=== PATIENT | male | born 1965 | race Caucasian/White ===

== ENCOUNTER 2024-11-22 15:58 | Inpatient (IN) | payer SELFPAY ==
[~2024-11-22] VITALS: Ht 180.3 cm; Wt 63.0 kg
[~2024-11-22 15:58] MED LIST: AMOCLA875 PO; CLIN300 PO; Dilaudid 2 mg Ta2 MG PO; IBUP400 PO
[2024-11-22 16:24] LABS: BASOPHILS ABSOLUTE AUTO 0.04 K/mm3 (0.00-0.23); BASOPHILS PERCENT AUTO 0 % (0-2); EOSINOPHILS ABSOLUTE AUTO 0.07 K/mm3 (0.00-0.68); EOSINOPHILS PERCENT AUTO 1 % (0-6); Hemoglobin 18.9 g/dL (13.5-17.5); IMMATURE GRAN ABSOLUTE AUTO 0.02 K/mm3 (0.00-0.10); IMMATURE GRAN PERCENT AUTO 0 % (0-1); LYMPHOCYTES ABSOLUTE AUTO 2.12 K/mm3 (0.84-5.20); LYMPHOCYTES PERCENT AUTO 21 % (21-46); MONOCYTES ABSOLUTE AUTO 0.82 K/mm3 (0.16-1.47); MONOCYTES PERCENT AUTO 8 % (4-13); Mean Corpuscular HGB Conc 32.8 g/dL (31.5-36.5); Mean Corpuscular Volume 94 fL (80-100); Mean Platelet Volume 9.9 fL (9.1-12.4); NEUTROPHILS ABSOLUTE AUTO 6.88 K/mm3 (1.96-9.15); NEUTROPHILS PERCENT AUTO 69 % (41-73); Platelet Count 281 K/mm3 (150-400); RDW Coefficient Variation 13.8 % (11.7-14.2); RDW Standard Deviation 48.8 fL (35.1-46.3); White Blood Cell Count 9.95 K/mm3 (4.00-11.30)
[2024-11-22 16:25] LABS: Hematocrit 57.6 % (37.0-53.0)
[2024-11-22 16:41] LABS: Albumin, Blood 2.8 g/dL (3.4-5.0); Albumin/Globulin Ratio 0.7 (0.8-1.8); Bilirubin, Total 0.8 mg/dL (0.1-1.0); Bun/Creatinine Ratio 16.2 (12.0-20.0); Calcium, Blood 8.8 mg/dL (8.5-10.1); Creatinine, Blood 0.93 mg/dL (0.60-1.20); Globulin, Blood 4.2 g/dL (2.2-4.0); Potassium, Blood 4.3 mmol/L (3.5-5.5)
[2024-11-22] MEDS ORDERED: Ipratropium/Albuterol SulF 2.5-0.5MG/3 ML Amp INH ONE (17:00)
[2024-11-22 17:33] LABS: CORONAVIRUS COVID-19 AG Negative (NEGATIVE); INFLUENZA A AG Negative (NEGATIVE); INFLUENZA B AG Negative (NEGATIVE)
[2024-11-22] MEDS ORDERED: MethylPREDNISolone Sod Succ 125 MG Vial IV ONE (19:50)
[2024-11-22] MEDS ORDERED: TraZODone HCl 50 MG Tab PO PRN (20:20)
[2024-11-22] MEDS ORDERED: Magnesium Hydroxide Conc 10 ML UDC PO PRN (20:20)
[2024-11-22] MEDS ORDERED: Ipratropium/Albuterol SulF 2.5-0.5MG/3 ML Amp INH SCH (20:20)
[2024-11-22] MEDS ORDERED: FLU VACC TS2024-25(6MOS UP)/PF 45 MCG/0.5 ML SYRINGE IM ONE (20:25)
[2024-11-22] MEDS ORDERED: CefTRIAXone Sodium 1,000 MG in NS 100 ML IV SCH (21:00)
[2024-11-22] MEDS ORDERED: Lactobacil 2-S.Thermo-Bifido 1 1 Cap PO SCH (21:00)
[2024-11-22] MEDS ORDERED: ALBU90OI INH (21:11)
[2024-11-22 21:32] VITALS: BP 150/88
[2024-11-22] MEDS ORDERED: NS 250 ML IV PRN (21:45)
--- NOTE | 2024-11-22 22:28 | NUR ---
PATIENT IS A NEW ADMIT FROM THE ED. ALERT, ORIENTED, AND SELF TRANSFER FROM [facility] TO BED. ON 3L O2 NC FROM ED AND RA BASELINE. REPORTS SOB W/EXERTION. DENIES CHEST PAIN AND N/V. IV ABX STARTED. RT IN FOR BREATHING TX. ORIENTED TO ROOM AND CALL LIGHT SYSTEM. REPORTS WANTS TO WATCH TV AFTER ASSESSMENT. WCTM.
[2024-11-22] MEDS ORDERED: Albuterol 2.5 MG/3 ML VIAL INH PRN (22:35)
[2024-11-23] MEDS ORDERED: MethylPREDNISolone Sod Succ 40 MG VIAL IV SCH (04:00)
--- NOTE | 2024-11-23 04:20 | NUR ---
SHIFT SUMMARY PATIENT HAD NO ACUTE CHANGES. AXOX 4 AND INDEPENDENT IN ROOM. ON 3L O2 NC AND RA BASELINE. SOB W/EXERTION. RT IN FOR BREATHING TX. DENIES CHEST PAIN AND N/V. VSS/AFEBRILE. CALL LIGHT IN REACH. BED IN LOWEST POSITION. WILL CONTINUE TO MONITOR UNTIL DAY SHIFT NURSE ASSUMES CARE.
[2024-11-23 05:42] VITALS: BP 126/90
[2024-11-23 07:40] VITALS: BP 128/98
[2024-11-23] MEDS ORDERED: Enoxaparin 40 MG/0.4 ML SYR SC SCH (09:00)
--- NOTE | 2024-11-23 12:16 | NUR ---
BIOX 82-83% ON 4 LITERS OXYGEN. PT INSTRUCTED ON USE OF IS. BIOX 87-88% AFTER USING IS. PT ENCOURAGED TO USE IS HOURLY FOR 8-10 REPS. PT DEMONSTRATES CORRECT USE OF IS
[2024-11-23] MEDS ORDERED: Fluticasone 0.05% Nasal Spray SCH (14:05)
--- NOTE | 2024-11-23 16:14 | NUR ---
SHIFT SUMMARY PT AOX4, COOPERATIVE, ABLE TO MAKE NEEDS KNOWN. PT IS IND IN ROOM ON 3LO2 CURRENTLY. PT SEEMS TO BE HANG AROUND 90% SATURATION REGARDLESS OF O2 DEMANDS. PT COMPLAINT OF NASAL CONGESTION, MD ORDERED FLONASE FOR RELIEF. NO COMPLAINTS OF PAIN. TOLERATING PO AND IV ANTIBIOTICS APPROPRIATELY. PT IS CONTINENT AND USING RESTROOM APPROPRIATELY. BED IN LOWEST POSITION, CALL LIGHT WITHIN REACH.
[2024-11-23 16:49] VITALS: BP 120/78
[2024-11-23 20:43] VITALS: BP 124/83
--- NOTE | 2024-11-24 04:15 | NUR ---
SHIFT SUMMARY PATIENT DESTATS INTO 70'S WHEN UP TO TAKE A SHOWER. ON 3L O2 NC STATING 88-90% ON CONTINUOUS PULSE OXIMETRY. UP TO 5L O2 WHEN UP. SOB W/EXERTION. ALERT ORIENTED AND INDEPENDENT. DENIES CHEST PAIN, SOB, AND N/V. VSS/AFEBRILE. PIV INTACT. IV ABX INFUSED. RT IN FOR BREATHING TX. CALL LIGHT IN REACH. BED IN LOWEST POSITION. WILL CONTINUE TO MONITOR UNTIL DAY SHIFT NURSE ASSUMES CARE.
[2024-11-24 05:15] VITALS: BP 126/87
[2024-11-24 05:47] LABS: BASOPHILS ABSOLUTE AUTO 0.04 K/mm3 (0.00-0.23); BASOPHILS PERCENT AUTO 0 % (0-2); EOSINOPHILS PERCENT AUTO 0 % (0-6); Hematocrit 51.6 % (37.0-53.0); Hemoglobin 17.5 g/dL (13.5-17.5); IMMATURE GRAN ABSOLUTE AUTO 0.34 K/mm3 (0.00-0.10); IMMATURE GRAN PERCENT AUTO 1 % (0-1); LYMPHOCYTES ABSOLUTE AUTO 0.82 K/mm3 (0.84-5.20); LYMPHOCYTES PERCENT AUTO 3 % (21-46); MONOCYTES ABSOLUTE AUTO 0.54 K/mm3 (0.16-1.47); MONOCYTES PERCENT AUTO 2 % (4-13); Mean Corpuscular HGB 31.5 pg (26.0-34.0); Mean Corpuscular HGB Conc 33.9 g/dL (31.5-36.5); Mean Corpuscular Volume 93 fL (80-100); Mean Platelet Volume 10.3 fL (9.1-12.4); NEUTROPHILS PERCENT AUTO 94 % (41-73); Platelet Count 284 K/mm3 (150-400); RDW Coefficient Variation 13.5 % (11.7-14.2); RDW Standard Deviation 46.7 fL (35.1-46.3); Red Blood Cell Count 5.55 M/mm3 (4.30-5.90); White Blood Cell Count 27.84 K/mm3 (4.00-11.30)
[2024-11-24 06:29] LABS: Bun/Creatinine Ratio 22.4 (12.0-20.0); Calcium, Blood 9.1 mg/dL (8.5-10.1); Creatinine, Blood 0.85 mg/dL (0.60-1.20); Potassium, Blood 4.6 mmol/L (3.5-5.5)
[2024-11-24] MEDS ORDERED: Ipratropium/Albuterol SulF 2.5-0.5MG/3 ML Amp INH SCH (07:55)
[2024-11-24 08:30] VITALS: BP 118/74
[2024-11-24] MEDS ORDERED: Fluticasone 0.05% Nasal Spray SCH (09:00)
[2024-11-24 15:01] VITALS: BP 113/83
[2024-11-24] MEDS ORDERED: MethylPREDNISolone Sod Succ 40 MG VIAL IV SCH (16:00)
--- NOTE | 2024-11-24 19:12 | NUR ---
PATIENT IS ALERT AND ORIENTED AND COOPERATIVE WITH CARE. ON 5L O2 VIA NC, AT 92%. CONT. PULSE OX IN PLACE. PATIENT REPORTS FEELING BETTER TODAY. PLAN IS TO TAPER STEROIDS ACCORDING TO DR. MONROY. UP TO THE BATHROOM INDEPENDENTLY. NO NEW CONCERNS THIS SHIFT. WILL CONTINUE TO MONITOR
[2024-11-24 21:35] VITALS: BP 107/83
[2024-11-25 05:35] VITALS: BP 126/88
[2024-11-25 06:20] LABS: BASOPHILS ABSOLUTE AUTO 0.03 K/mm3 (0.00-0.23); BASOPHILS PERCENT AUTO 0 % (0-2); EOSINOPHILS PERCENT AUTO 0 % (0-6); Hematocrit 52.5 % (37.0-53.0); Hemoglobin 17.6 g/dL (13.5-17.5); IMMATURE GRAN PERCENT AUTO 2 % (0-1); LYMPHOCYTES ABSOLUTE AUTO 0.78 K/mm3 (0.84-5.20); LYMPHOCYTES PERCENT AUTO 3 % (21-46); MONOCYTES PERCENT AUTO 2 % (4-13); Mean Corpuscular HGB 31.3 pg (26.0-34.0); Mean Corpuscular HGB Conc 33.5 g/dL (31.5-36.5); Mean Corpuscular Volume 93 fL (80-100); Mean Platelet Volume 10.2 fL (9.1-12.4); NEUTROPHILS ABSOLUTE AUTO 25.11 K/mm3 (1.96-9.15); NEUTROPHILS PERCENT AUTO 94 % (41-73); Platelet Count 283 K/mm3 (150-400); RDW Coefficient Variation 13.9 % (11.7-14.2); RDW Standard Deviation 48.2 fL (35.1-46.3); Red Blood Cell Count 5.63 M/mm3 (4.30-5.90); White Blood Cell Count 26.82 K/mm3 (4.00-11.30)
[2024-11-25 06:53] LABS: BASOPHILS PERCENT MAN 0 % (0-2); EOSINOPHILS PERCENT MAN 0 % (0-6); LYMPHOCYTES ABSOLUTE MAN 0.26 K/mm3 (0.84-5.20); LYMPHOCYTES PERCENT MAN 1 % (21-46); MONOCYTES ABSOLUTE MAN 0.26 K/mm3 (0.16-1.47); MONOCYTES PERCENT MAN 1 % (4-13); NEUTROPHILS ABSOLUTE MAN 26.28 K/mm3 (1.96-9.15); SEG NEUTROPHILS PERCENT MAN 98 % (41-73); TOTAL CELLS COUNTED 100
[2024-11-25 06:56] LABS: Bun/Creatinine Ratio 28.3 (12.0-20.0); Calcium, Blood 9.2 mg/dL (8.5-10.1); Creatinine, Blood 0.78 mg/dL (0.60-1.20); Potassium, Blood 4.5 mmol/L (3.5-5.5)
[2024-11-25 07:52] VITALS: BP 126/93
[2024-11-25 16:13] VITALS: BP 120/93
--- NOTE | 2024-11-25 19:22 | NUR ---
SHIFT SUMMARY PATIENT UP AD TEDDY IN ROOM. HE DID DESAT DURING HIS SHOWER WHICH HE STATES HE DID NOT WEAR HIS OXYGEN FOR. 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 OX 83% RA AFTER EXERTION. 90-92% ON 4LPM. PATIENT MOTIVATED TO CONTINUE TO WORK LUNGS AND IMPROVE. PACING ACTIVITIES RECCOMENDED. BED IN LOW POSITION, CALL LIGHT IN REACH. HE IS ABLE TO MAKE NEEDS KNOWN.
[2024-11-25 21:06] VITALS: BP 137/89
[2024-11-26 05:11] VITALS: BP 138/95
[2024-11-26 06:01] LABS: BASOPHILS ABSOLUTE AUTO 0.01 K/mm3 (0.00-0.23); BASOPHILS PERCENT AUTO 0 % (0-2); EOSINOPHILS PERCENT AUTO 0 % (0-6); Hematocrit 50.9 % (37.0-53.0); Hemoglobin 16.5 g/dL (13.5-17.5); IMMATURE GRAN ABSOLUTE AUTO 0.18 K/mm3 (0.00-0.10); IMMATURE GRAN PERCENT AUTO 1 % (0-1); LYMPHOCYTES ABSOLUTE AUTO 0.61 K/mm3 (0.84-5.20); LYMPHOCYTES PERCENT AUTO 4 % (21-46); MONOCYTES ABSOLUTE AUTO 0.42 K/mm3 (0.16-1.47); MONOCYTES PERCENT AUTO 3 % (4-13); Mean Corpuscular HGB 30.6 pg (26.0-34.0); Mean Corpuscular HGB Conc 32.4 g/dL (31.5-36.5); Mean Corpuscular Volume 94 fL (80-100); Mean Platelet Volume 10.1 fL (9.1-12.4); NEUTROPHILS ABSOLUTE AUTO 15.79 K/mm3 (1.96-9.15); NEUTROPHILS PERCENT AUTO 93 % (41-73); Platelet Count 254 K/mm3 (150-400); RDW Coefficient Variation 13.9 % (11.7-14.2); RDW Standard Deviation 48.5 fL (35.1-46.3); White Blood Cell Count 17.01 K/mm3 (4.00-11.30)
[2024-11-26 06:24] LABS: Bun/Creatinine Ratio 25.3 (12.0-20.0); Creatinine, Blood 0.87 mg/dL (0.60-1.20); Potassium, Blood 4.4 mmol/L (3.5-5.5)
[2024-11-26 07:59] VITALS: BP 149/90
[2024-11-26 16:32] VITALS: BP 137/91
--- NOTE | 2024-11-26 18:50 | NUR ---
SHIFT SUMMARY- PT SEEMS TO HAVE IMPROVED T/O THE DAY TODAY. HE HAD A SSHOWER EARLIER IN THE SHIFT. IV WENT BAD AND WAS REPLACED WITH A 22G IN THE RFA. PT IS INDEPENDENT IN THE ROOM. HOME O2 EVAL WAS COMPLETED SHOWING THE NEED FOR 2L AT REST BUT 10L WITH ACTIVITY. DISCHARGE PLANS WERE DELAYED BY THE O2 REQUIREMENT. PT SITTING UP IN BED, CALL LIGHT IN REACH NO S&S OF DISTRESS NOTED AT THIS TIME.
[2024-11-26 19:39] VITALS: BP 133/87
--- NOTE | 2024-11-27 04:06 | NUR ---
SHIFT SUMMARY PATIENT HAD NO ACUTE CHANGES. ALERT ORIENTED AND INDEPENDENT. ON 2L O2 NC STATING 95% ON CONTINOUS PULSE OXIMETRY. PIV INTACT. IV ABX INFUSED. DENIES CHEST PAIN AND N/V. VSS/AFEBRILE. COOPERATIVE WITH CARE. CALL LIGHT IN REACH. BED IN LOWEST POSITION. WILL CONTINUE TO MONITOR UNTIL DAY SHIFT NURSE ASSUMES CARE.
[2024-11-27 05:16] VITALS: BP 125/93
[2024-11-27 06:18] LABS: BASOPHILS ABSOLUTE AUTO 0.01 K/mm3 (0.00-0.23); BASOPHILS PERCENT AUTO 0 % (0-2); EOSINOPHILS PERCENT AUTO 0 % (0-6); Hematocrit 51.3 % (37.0-53.0); IMMATURE GRAN ABSOLUTE AUTO 0.08 K/mm3 (0.00-0.10); IMMATURE GRAN PERCENT AUTO 1 % (0-1); LYMPHOCYTES ABSOLUTE AUTO 0.72 K/mm3 (0.84-5.20); LYMPHOCYTES PERCENT AUTO 5 % (21-46); MONOCYTES ABSOLUTE AUTO 0.45 K/mm3 (0.16-1.47); MONOCYTES PERCENT AUTO 3 % (4-13); Mean Corpuscular HGB 31.3 pg (26.0-34.0); Mean Corpuscular HGB Conc 33.1 g/dL (31.5-36.5); Mean Corpuscular Volume 94 fL (80-100); Mean Platelet Volume 10.3 fL (9.1-12.4); NEUTROPHILS ABSOLUTE AUTO 12.03 K/mm3 (1.96-9.15); NEUTROPHILS PERCENT AUTO 91 % (41-73); Platelet Count 221 K/mm3 (150-400); RDW Coefficient Variation 13.8 % (11.7-14.2); RDW Standard Deviation 48.1 fL (35.1-46.3); Red Blood Cell Count 5.44 M/mm3 (4.30-5.90); White Blood Cell Count 13.29 K/mm3 (4.00-11.30)
[2024-11-27 06:36] LABS: Bun/Creatinine Ratio 30.5 (12.0-20.0); Calcium, Blood 8.6 mg/dL (8.5-10.1); Creatinine, Blood 0.79 mg/dL (0.60-1.20); Potassium, Blood 4.7 mmol/L (3.5-5.5)
[2024-11-27 07:17] VITALS: BP 148/92
[2024-11-27 07:18] VITALS: BP 142/93
[2024-11-27] MEDS ORDERED: IPRAT-ALBUT 0.5-3 ML INH (12:20)
[2024-11-27] MEDS ORDERED: STIOLTO RESPIMAT4 G1 INH (12:22)
[2024-11-27] MEDS ORDERED: DELTASONE20 MG PO (12:22)
--- NOTE | 2024-11-27 14:52 | NUR ---
DISCHARGE NOTE- PT WAS GIVEN VERBAL AND WRITTEN DISCHARGE INSTRUCTIONS AND ACKNOWLEDGED UNDERSTANDING OF THEM. IV DC'D AT THE TIME OF DISCHARGE EDUCATION PER THE REQUEST OF THE PT. HE IS CURRENTLY IN THE SHOWER. PT SPOUSE WILL PICK HIM UP AFTER 1530. NO CURRENT S&S OF DISTRESS NOTED. PT WILL BE ESCORTED OUT VIA WC BY A STAFF MEMBER.
== END 2024-11-27 15:40 | disposition home or self-care (01) | DRG 189 ==
LOC: ER 15:58 → ERHOLD 15:59 → MEDS 15:59
PROVIDERS: Family Medicine; Internal Medicine; Physician Assistant; Student in an Organized Health Care Education/Training Program; ADMIT Internal Medicine
DX: J96.01 Acute respiratory failure with hypoxia (principal); J44.1 Chronic obstructive pulmonary disease with (acute) exacerbation; Z28.21 Immunization not carried out because of patient refusal; J43.9 Emphysema, unspecified; Z87.891 Personal history of nicotine dependence; R91.8 Other nonspecific abnormal finding of lung field
CPT/HCPCS: 36415; 71260; 80048; 80053; 83735; 84484; 85025; 87428-QW; 93005; 93010; 94640; 94664; 94760; 94761; 94762; 99285-25; A9270; J0696; J1650; J2919; J7050; Q9967